=== PATIENT | female | born 1985 | race Caucasian/White ===

== ENCOUNTER 2022-10-14 08:36 | Outpatient (CLI) | payer OTHER | END 2022-10-14 08:37 | disposition home or self-care (01) | LOC: RX STUDY 08:36 | PROVIDERS: ATTEND Obstetrics & Gynecology Reproductive Endocrinology | DX: N93.0 Postcoital and contact bleeding (principal) ==

== ENCOUNTER 2022-10-30 07:50 | Outpatient (CLI) | payer OTHER | END 2022-10-30 09:55 | disposition home or self-care (01) | LOC: PRENATAL 07:50 | PROVIDERS: ATTEND Obstetrics & Gynecology Maternal & Fetal Medicine | DX: Z76.1 Encounter for health supervision and care of foundling (principal) ==